=== PATIENT | male | born 1950 | race Asian ===

== ENCOUNTER 2020-12-31 11:22 | Inpatient (IN) | payer OTHER ==
[~2020-12-31] VITALS: Ht 160 cm; Wt 62.5 kg
[2020-12-31] MEDS ORDERED: MORPHINE SULFATE 4 MG/ML SYR/VIAL IV ONE (11:30)
[2020-12-31] MEDS ORDERED: ASPirin 81 mg TAB PO ONE (11:30)
[2020-12-31] MEDS ORDERED: ONDANSETRON HCL 4 MG/2 ML VIAL IV ONE (11:30)
[2020-12-31] MEDS ORDERED: cloNIDine HCL 0.1 MG TAB PO ONE (11:45)
[2020-12-31 11:50] LABS: Basophils # (auto) 0 10 ^3/uL (0-0.2); Basophils % (auto) 0.4 % (0.0-2.0); Eosinophils # (auto) 0.1 10 ^3/uL (0-0.8); Eosinophils % (auto) 1.8 % (0.0-7.0); Hematocrit 43.7 % (41.0-53.0); Hemoglobin 14.9 g/dL (13.5-17.5); Lymphocytes # (auto) 2.7 10 ^3/uL (0.4-5.4); Lymphocytes % (auto) 37.6 % (10.0-50.0); Mean Corpuscular Hemoglobin 30.6 pg (28.0-32.0); Mean Corpuscular Hgb Conc. 34.1 g/dL (32.0-36.0); Mean Corpuscular Volume 89.8 fL (80.0-100.0); Monocytes # (auto) 0.3 10 ^3/uL (0-1.3); Monocytes % (auto) 4.9 % (0.0-12.0); Neutrophils % (auto) 55.3 % (37.0-80.0); Nucleated Red Blood Cells % 0.1 %; Platelet Count (auto) 264 10^3/uL (140-450); Red Blood Cells 4.87 10^6/uL (4.5-5.90); Red Cell Distribution Width 14.6 % (11.8-14.3); White Blood Cell 7.1 10^3/uL (4.4-10.8)
[2020-12-31 12:02] LABS: INR 0.98 (0.9-1.15); Partial Thromboplastin Time 28.9 sec (23.0-31.2)
[2020-12-31 12:12] LABS: Anion Gap 6 (5-15); Blood Urea Nitrogen 14 mg/dL (7-18); Calcium 9.3 mg/dL (8.5-10.1); Carbon Dioxide 27 mmol/L (21-32); Chloride 107 mmol/L (98-107); Glucose 95 mg/dL (74-106); Magnesium 2.3 mg/dL (1.6-2.6); Sodium 140 mmol/L (136-145)
[2020-12-31 12:19] LABS: Alanine Aminotransferase 52 U/L (16-61); Alkaline Phosphatase 78 U/L (45-117); Aspartate Aminotransferase 29 U/L (15-37); BUN/Creatinine Ratio 16.7; Bilirubin, Total 0.6 mg/dL (0.2-1.0); GFR African American 117 mL/min; GFR Non-African American 97 mL/min; Total Protein 8.3 g/dL (6.4-8.2)
[2020-12-31] MEDS ORDERED: hydrALAZINE HCL 20 MG/ML VL IV PRN (13:15)
[2020-12-31] MEDS ORDERED: HYDROcodone-ACET 5/325MG TAB PO PRN (13:15)
[2020-12-31] MEDS ORDERED: ACETAMINOPHEN 500 MG TAB PO PRN (13:15)
[2020-12-31] MEDS ORDERED: NITROGLYCERIN 0.4 MG SL TAB SL PRN (13:15)
[2020-12-31] MEDS ORDERED: MORPHINE SULF INJ 2 MG/ML SYRINGE 1ML IV PRN ×2 (13:15)
[2020-12-31] MEDS ORDERED: ONDANSETRON HCL 4 MG/2 ML VIAL IV PRN (13:15)
[2020-12-31] MEDS ORDERED: DOCUSATE SOD 100 MG CAP PO PRN (13:15)
[2020-12-31 16:30] VITALS: BP 141/73
[2020-12-31] MEDS ORDERED: ATOR20TA50 PO (18:12)
[2020-12-31] MEDS ORDERED: KRIL1CAP11 PO (18:12)
[2020-12-31] MEDS ORDERED: FIBECHW2 PO (18:12)
[2020-12-31] MEDS ORDERED: OMEG1CAP59 PO (18:12)
[2020-12-31] MEDS: ATORVASTATIN 20 MG TAB PO SCH (21:40)
[2020-12-31 22:00] VITALS: BP 120/71
[2021-01-01 05:00] VITALS: BP 118/74
[2021-01-01] MEDS ORDERED: ADENOSINE 52 MG in GIVE UN-DILUTED 0 ML IV STA (08:35)
[2021-01-01 09:01] VITALS: BP 125/79
[2021-01-01] MEDS: ASPirin-EC 81 mg tab PO SCH (11:03)
[2021-01-01] MEDS: FAMOTIDINE 20 MG TAB PO SCH (11:04)
[2021-01-01] MEDS: LISINOPRIL 10 MG TAB PO SCH (11:04)
[2021-01-01 12:33] VITALS: BP 119/76
[2021-01-01 16:31] VITALS: BP 93/44
[2021-01-01] MEDS: ATORVASTATIN 20 MG TAB PO SCH (21:25)
[2021-01-01 22:00] VITALS: BP 92/60
[2021-01-02 05:00] VITALS: BP 97/61
[2021-01-02 08:44] VITALS: BP 93/67
[2021-01-02] MEDS: FAMOTIDINE 20 MG TAB PO SCH (09:37)
[2021-01-02] MEDS: ASPirin-EC 81 mg tab PO SCH (09:37)
[2021-01-02] MEDS: LISINOPRIL 10 MG TAB PO SCH (09:37)
== END 2021-01-02 11:55 | disposition home or self-care (01) | DRG 313 ==
LOC: ER 11:22 → TELE 11:23 → TELE-CENTR 16:00
PROVIDERS: ADMIT Nurse Practitioner Acute Care; ATTEND Internal Medicine
DX: R07.89 Other chest pain (principal); I10 Essential (primary) hypertension; E78.00 Pure hypercholesterolemia, unspecified; E78.5 Hyperlipidemia, unspecified; Z20.822 Contact with and (suspected) exposure to COVID-19
CPT/HCPCS: 36415; 71045; 78452; 80053; 82550; 83735; 84484; 85025; 85379; 85610; 85730; 86141; 87426; 93005; 93017; 93306; 96374; 96375; G0378; J0153; J2405